=== PATIENT | female | born 1970 | race Two or more races ===

== ENCOUNTER 2025-02-12 15:30 | Inpatient (IN) | payer OTHER ==
[~2025-02-12] VITALS: Ht 160 cm; Wt 97.8 kg
[2025-02-12] MEDS: LABETALOL HCL 20 MG/4 ML VL IV ONE (15:45)
--- NOTE | 2025-02-12 16:03 | ED.PDOC ---
HPI Comments HPI: 54-year-old female presents to the emergency department with a chief complaint of hypertension onset today (02/12/25). Patient initially went to urgent care for RT-sided back pain, after vitals were taken she was told her BP was elevated, recommended to come to ED. During triage patient's BP was 237/116, patient states she has no symptoms her only complaint of RT side back pain. She has been experiencing back pain for the past week. Denies any fall, injury, trauma, chest pain, shortness of breath, dizziness, blurred vision, numbness/tingling, weakness. No other symptoms or modifying factors present at this time. Initial Vitals BP: 237/116 HR: 92 RR: 16 O2: 100% Temp: 98.5 F Past Medical History: Denies Past Surgical History:Denies Social History: Denies ETOH, smoking, and drug use. Medications: Denies Allergies: Denies HPI: Poor Historian. REVIEW OF SYSTEMS: CONSTITUTIONAL: Denies acute: fever, diaphoresis, chills, generalized weakness. HEAD: Denies acute: headache, photophobia Eyes: Denies acute: Double vision, vision loss, eye pain, eye discharge. EARS: Denies acute: tinnitus, hearing loss, ear discharge, ear pain, THROAT: Denies acute: sore throat, swelling, difficulty swallowing , pain with swallowing, change in voice. NECK: Denies acute: neck pain, neck swelling, stiff neck. HEART: Denies acute : chest pain, palpitations, LUNGS: Denies acute: SOB, wheezing, cough, hemoptysis ABDOMEN: Denies acute: abdominal pain, Nausea, Vomiting, diarrhea, melena , hematemesis, hematochezia SKIN: Denies acute: rash, redness, lesions, itchiness. EXTREMITIES: Denies acute: calf pain, numbness, tingling, weakness, denies pain in extremity. Denies acute: Low back pain. Neuro: Denies acute: focal neurological deficit, motor or sensory focal neurological deficit, tremors, seizure like activity, confusion, dizziness, change in mental status, loss of bowel or bladder function, cauda equina like symptoms. : Denies acute: dysuria, hematuria, flank pain, increase in urinary frequency. PSYCH: Denies acute: hallucination, suicidal ideation, homicidal ideation. FEMALE: Denies acute: abnormal vaginal bleeding, foul odor, unusual discharge. PHYSICAL EXAM: General: --no------acute distress, awake and alert. Head: normocephalic, atraumatic. Neck: supple, trachea is midline, no swelling. Throat: Normal phonation. Eyes:, no erythema, no purulent discharge, no proptosis, no icterus. Heart: regular rate, regular rhythm, no significant murmur appreciated. Lungs: no apparent respiratory distress, Able to speak in full sentences. No wheezing, no rhonchi, no crackles. No stridors Clear to auscultation bilaterally. Abdomen: non tender to palpation, non distended, soft, no guarding, no rebound, + bowel sounds. Neuro: Awake, Alert, oriented to name, self, situation, follows commands GCS=15. Speech is normal. Skin: no petechia, no purpura, no cyanosis, non-pale, not jaundice. Lower extremities: --no - Pitting edema no deformity, no focal swelling, no calf TTP. Makes eye contact. moves all four extremities. Face: no apparent facial droop. Patient area of back soreness is right immediately below the scapula. The pain is positional. Worse with certain movement and certain rotation. No swelling noted. No CVA tenderness to percussion bilaterally. Ambulating in the ED independently. ED COURSE: DISCLAIMER: This medical document was created using an electronic medical record system with voice recognition software and computerized dictation system. Although this document has been carefully reviewed, there might still be some phonetic and typographical errors. Occasional wrong-word or "sound-alike" substitutions may have occurred due to the inherent limitations of voice recognition software. These areas are purely typographical due to imperfections of the software programs and do not reflect any compromise in the patient's medical care. Please read the chart carefully and recognize, using context, where these substitutions have occurred. Chief Complaint: High Blood Pressure Time Seen by MD: 15:50 Reviewed Notes: Medications, Allergies Allergies: Coded Allergies: Hydralazine (Verified Allergy, Mild, 02/13/25) Home Meds Active Scripts Lisinopril (Lisinopril) 20 Mg Tab, 1 TAB PO DAILY, #90 TAB 1 Refill Prov:COCO MUNGUIA MD 02/17/25 Lisinopril (Lisinopril) 20 Mg Tab, 1 TAB PO DAILY PRN, #30 TAB 5 Refills Prov:COCO MUNGUIA MD 02/17/25 Amlodipine Besylate (Amlodipine Besylate) 10 Mg Tab, 1 TAB PO DAILY, #90 TAB 1 Refill Prov:KETTY FLORES MD 02/15/25 Information Source: Patient Mode of Arrival: Ambulatory Severity: Moderate Timing: Hours Duration: Since onset Prehospital treatment: None Onset: At Rest Cardiac Risk Factors: None PE Risk Factors: None History of: None Modifying Factors: Nothing Associated Signs and Symptoms: Back Pain Past Medical History PAST MEDICAL HISTORY: Denies Surgical History: Denies all surgeries WIRELINE FIELD OPERATOR History: No Pertinent WIRELINE FIELD OPERATOR History Family History Family History: Reviewed,noncontributory to illness, No family hx of Cancer, No family hx of DM, No family hx of Heart tyrone, No family hx of HTN, No family hx ofKidney tyrone, No family hx of Liver tyrone, No family hx of Lung tyrone, No family hx of Stroke Social History Smoker: Non-Smoker Alcohol: Denies ETOH Use Drugs: Denies Drug Use Lives In: Home Was a procedure done? Was a procedure done?: No CP Differential Dx Differential Diagnosis: N/A Differential Diagnosis: Other (DDX include renal disease, thyroid disease, electrolyte abnormality, increased salt intake, medications non-compliance, undiagnosed HTN, Hypertensive crisis, hypertensive urgency., drug toxicity.) X-Ray, Labs, Meds, VS Vital Signs Date Time Temp Pulse Resp B/P (MAP) Pulse Ox O2 Delivery O2 Flow Rate FiO2 02/13/25 02:00 84 21 174/96 (122) 92 02/13/25 01:00 85 21 175/97 (123) 90 02/13/25 00:50 88 12 154/137 (143) 97 02/12/25 23:30 98.6 91 15 175/92 (119) 98 98.6 02/12/25 23:30 91 15 98 Room Air* 0 21 02/12/25 20:42 102 18 169/79 (109) 99 02/12/25 19:50 102 18 187/110 (135) 99 02/12/25 19:37 188/163 02/12/25 18:30 215/107 02/12/25 18:22 81 18 215/107 (143) 98 02/12/25 17:50 218/115 02/12/25 17:34 258/123 02/12/25 16:57 94 18 258/125 (169) 96 02/12/25 16:57 98 18 02/12/25 15:45 100 215/118 02/12/25 15:31 98.5 92 16 237/116 100 98.5 Lab Test 02/12/25 19:08 02/12/25 17:37 02/12/25 15:59 Range/Units Troponin I High Sensitivity 7 7 10 </=34 ng/L White Blood Count 10.9 H 4.4-10.8 10^3/uL Red Blood Count 4.10 4.0-5.20 10^6/uL Hemoglobin 9.9 L 12.2-16.2 g/dL Hematocrit 30.1 L 36.0-46.0 % Mean Corpuscular Volume 73.5 L 80.0-100.0 fL Mean Corpuscular Hemoglobin 24.2 L 28.0-32.0 pg Mean Corpuscular Hemoglobin Concent 32.9 32.0-36.0 g/dL Red Cell Distribution Width 18.9 H 11.8-14.3 % Platelet Count 380 140-450 10^3/uL Mean Platelet Volume 7.6 6.9-10.8 fL Neutrophils (%) (Auto) 68.3 37.0-80.0 % Lymphocytes (%) (Auto) 22.5 10.0-50.0 % Monocytes (%) (Auto) 6.6 0.0-12.0 % Eosinophils (%) (Auto) 1.4 0.0-7.0 % Basophils (%) (Auto) 1.2 0.0-2.0 % Neutrophils # (Auto) 7.4 1.6-8.6 10 ^3/uL Lymphocytes # (Auto) 2.5 0.4-5.4 10 ^3/uL Monocytes # (Auto) 0.7 0-1.3 10 ^3/uL Eosinophils # (Auto) 0.2 0-0.8 10 ^3/uL Basophils # (Auto) 0.1 0-0.2 10 ^3/uL Nucleated Red Blood Cells 0.0 % Sodium Level 139 136-145 mmol/L Potassium Level 3.4 L 3.5-5.1 mmol/L Chloride Level 101 98-107 mmol/L Carbon Dioxide Level 28 20-31 mmol/L Anion Gap 10 5-15 Blood Urea Nitrogen 16 9-23 mg/dL Creatinine 0.79 0.550-1.02 mg/dL Glomerular Filtration Rate Calc 89 >90 mL/min BUN/Creatinine Ratio 20.3 H 10.0-20.0 Serum Glucose 90 74-106 mg/dL Calcium Level 9.6 8.7-10.4 mg/dL [place] [address] Ph: [phone] DIAGNOSTIC IMAGING Diagnostic Imaging Report : [id number] Signed PATIENT: DEQUAN ABDALLA ACCT: [id number] UNIT: [id number] : 1970 LOC: ER ROOM / BED: / AGE / SEX: 54 / F ADM STATUS: REG ER SERVICE 1544 ORDERING PHYSICIAN: OSMAR BAUGH DO PROCEDURE(s): HWOCT - HEAD WITHOUT CONTRAST REASON: HTN ORDER NUMBER(s): [id number], ACCESSION NUMBER(s): [id number] CLINICAL HISTORY: HTN TECHNIQUE: Helical scanning was performed of the head from the skull base to the vertex. Multiplanar reconstructions were performed. This exam was performed according to our departmental dose optimization program. Up-to-date CT equipment and radiation dose reduction techniques are utilized as appropriate. CTDI 58.9 DLP 1042 COMPARISON: None FINDINGS: There is no evidence for acute intracranial hemorrhage, acute ischemic changes, mass, mass effect, or extra-axial fluid collection. There is no hydrocephalus or midline shift. There is no effacement of the cerebral sulci and basal subarachnoid cisterns. The sheldon-white matter differentiation is well maintained. Scattered white matter hypoattenuation is most compatible with a moderate burden of nonspecific chronic small vessel schema change. There is a nonspecific coarse calcification at the left inferior govind. IMPRESSION: NO ACUTE INTRACRANIAL ABNORMALITY SEEN. SCATTERED WHITE MATTER HYPOATTENUATION IS MOST COMPATIBLE WITH a MODERATE BURDEN OF NONSPECIFIC CHRONIC SMALL VESSEL ISCHEMIC CHANGE. ATED BY: IRMA COLLINS MD DICTATED DATE/TIME: 02/12/257 SIGNED BY: IRMA COLLINS MD SIGNED DATE/TIME: 02/12/257 CC: [address] [address] Ph: [phone] DIAGNOSTIC IMAGING Diagnostic Imaging Report : [id number] Signed PATIENT: DEQUAN ABDALLA ACCT: [id number] UNIT: [id number] : 1970 LOC: ER ROOM / BED: / AGE / SEX: 54 / F ADM STATUS: REG ER SERVICE 1544 ORDERING PHYSICIAN: OSMAR BAUGH DO PROCEDURE(s): CXRP - CHEST PORTABLE REASON: HTN ORDER NUMBER(s): [id number], ACCESSION NUMBER(s): [id number] CLINICAL HISTORY: HTN TECHNIQUE: Single view of the chest was obtained. COMPARISON: None FINDINGS: The heart size and pulmonary vasculature are normal. The lungs are clear. IMPRESSION: NO ACUTE CARDIOPULMONARY PROCESS. ATED BY: IRMA COLLINS MD DICTATED DATE/TIME: 02/12/258 SIGNED BY: IRMA COLLINS MD SIGNED DATE/TIME: 02/12/251657 CC: Time of 1ST Reevaluation: 16:20 Reevaluation 1ST: Unchanged Patient Education/Counseling: Diagnosis, Treatment Family Education/Counseling: No Family Present Comments MDM: patient presented with the above HPI.--hypertensive crisis----workup was initiated. patient was found with the above mentioned diagnosis. the following medications were ordered: please refer to order lists of meds and tests obtained by myself Dr. Baugh. Patient ED course and VS have been stabilized. Patient has been reassessed in the ED and remained in a stable condition. Pertinent incidental findings were discussed with the patient and/or family. Patient/family voices understanding and is agreeable with plan. Patient has been observed in the ED adequate length of time to insure improvement/stability. Escalation of care considered: Consideration of escalation to observation or admission Patient was given multiple IV medications for blood pressure control. Patient was ADMITTED to the medicine team for further evaluation and treatment of their presentation. All the reports of any imaging studies that were ordered by myself were reviewed by myself. Departure 1 Departure Time of Disposition: 17:38 Impression: Primary Impression: Hypertensive crisis Additional Impression: Anemia Disposition: ADMITTED INPATIENT Admit to: Tele Condition: Guarded e-Prescriptions Lisinopril (Lisinopril) 20 Mg Tab 1 TAB PO DAILY, #90 TAB 1 Refill Prov: COCO MUNGUIA MD 02/17/25 Lisinopril (Lisinopril) 20 Mg Tab 1 TAB PO DAILY PRN, #30 TAB 5 Refills Prov: COCO MUNGUIA MD 02/17/25 Amlodipine Besylate (Amlodipine Besylate) 10 Mg Tab 1 TAB PO DAILY, #90 TAB 1 Refill Prov: KETTY FLORES MD 02/15/25 Discharged With: Self Critical Care Note Critical Care Time?: Yes (45 min-critical care time only) Heart Score Heart Score: Heart Score Response (Comments) Value History N/A 0 EKG N/A 0 Age N/A 0 Risk Factors N/A 0 Troponin N/A 0 Total 0 I personally scribed for OSMAR BAUGH DO ([email or web address]) on 02/12/25 at 16:03. Electronically submitted by Addie Colin ([email or web address]). I personally scribed for OSMAR BAUGH DO ([email or web address]) on 02/12/25 at 17:53. Electronically submitted by Addie Colin ([email or web address]). OSMAR BAUGH DO Feb 12, 2025 16:03
[2025-02-12 16:20] LABS: Mean Corpuscular Volume 73.5 fL (80.0-100.0); Nucleated Red Blood Cells % 0.0 %
[2025-02-12 16:22] LABS: Hematocrit 30.1 % (36.0-46.0); Hemoglobin 9.9 g/dL (12.2-16.2); Mean Corpuscular Hemoglobin 24.2 pg (28.0-32.0)
--- NOTE | 2025-02-12 16:40 | DVH ---
CLINICAL HISTORY: HTN TECHNIQUE: Helical scanning was performed of the head from the skull base to the vertex. Multiplanar reconstructions were performed. This exam was performed according to our departmental dose optimizat ion program. Up-to-date CT equipment and radiation dose reduction techniques are utilized as appropri ate. CTDI 58.9 DLP 1042 COMPARISON: None FINDINGS: There is no evidence for acute intracranial hemorrhage, acute ischemic changes, mass, mass effect, or extra-axial fluid collection. There is no hydrocephalus or midline shift. There is no effacement of the cerebral sulci and basal subarachnoid cisterns. The sheldon-white matter differentiation is well chiquis ntained. Scattered white matter hypoattenuation is most compatible with a moderate burden of nonspecific chron ic small vessel schema change. There is a nonspecific coarse calcification at the left inferior govind . IMPRESSION: NO ACUTE INTRACRANIAL ABNORMALITY SEEN. SCATTERED WHITE MATTER HYPOATTENUATION IS MOST COMPATIBLE WITH a MODERATE BURDEN OF NONSPECIFIC CHRON IC SMALL VESSEL ISCHEMIC CHANGE.
[2025-02-12 16:42] LABS: Chloride 101 mmol/L (98-107); Sodium 139 mmol/L (136-145)
[2025-02-12 16:43] LABS: Anion Gap 10 (5-15); Calcium 9.6 mg/dL (8.7-10.4); Carbon Dioxide 28 mmol/L (20-31)
[2025-02-12 16:48] LABS: BUN/Creatinine Ratio 20.3 (10.0-20.0); Blood Urea Nitrogen 16 mg/dL (9-23); Glucose 90 mg/dL (74-106)
--- NOTE | 2025-02-12 17:00 | DVH ---
CLINICAL HISTORY: HTN TECHNIQUE: Single view of the chest was obtained. COMPARISON: None FINDINGS: The heart size and pulmonary vasculature are normal. The lungs are clear. IMPRESSION: NO ACUTE CARDIOPULMONARY PROCESS.
[2025-02-12 17:15] LABS: Potassium 3.4 mmol/L (3.5-5.1)
[2025-02-12] MEDS: NITROGLYCERIN 0.4 MG SL TAB SL ONE (17:34)
[2025-02-12] MEDS: hydrALAZINE HCL 20 MG/ML VL IV ONE ×3 (17:50→19:37)
[2025-02-12] MEDS: ONDANSETRON HCL 4 MG/2 ML VIAL IV ONE (20:56)
[2025-02-12 23:30] VITALS: PULSE 91; RESP 15; O2SAT 98
[2025-02-13] MEDS: ONDANSETRON HCL 4 MG/2 ML VIAL IV ONE (00:58)
[2025-02-13] MEDS: ONDANSETRON HCL 4 MG/2 ML VIAL ONE (00:58)
[2025-02-13] MEDS ORDERED: MORPHINE SULFATE INJ 2 MG/ml SYRG IV PRN (02:30)
[2025-02-13] MEDS ORDERED: NITROGLYCERIN 0.4 MG SL TAB SL PRN (02:30)
[2025-02-13] MEDS: POTASSIUM CHL 20 Meq TABLET PO ONE (02:48)
[2025-02-13] MEDS: HYDROcodone-ACET 5/325MG TAB PO PRN (03:55)
[2025-02-13] MEDS: hydrALAZINE HCL 20 MG/ML VL IV PRN (04:45)
--- NOTE | 2025-02-13 04:46 | DVHHP2 ---
History of Present Illness Reason for Visit: Back pain History of Present Illness 64-year-old female initially presented for evaluation of back pain. Patient presented for evaluation of right-sided back pain during her vital sign evaluation she was noted to have a blood pressure of 237/116. Patient is currently reporting a frontal headache. No nausea or vomiting. She reports not being on any medications currently. And does not have a primary care provider. Denies chest pain or shortness for breath. Past Medical History Denies Past Surgical History Denies Family History Noncontributory Smoke: No ALCOHOL: none Drugs: None Lives: with Family Review of Systems Review of Systems Review of systems are currently negative otherwise addressed in HPI. Allergies: Coded Allergies: NO KNOWN ALLERGIES (Unverified , 02/12/25) Medications Current Medications Medications Dose Ordered Sig/Cheryle Route Start Time Stop Time Status Last Admin Dose Admin Hydralazine HCl 10 mg Q6HP PRN IV 02/13/25 02:30 Lisinopril 10 mg DAILY PO 02/13/25 10:00 Acetaminophen/ Hydrocodone Bitart 1 tab Q4HP PRN PO 02/13/25 02:30 02/13/25 03:55 1 TAB Ondansetron HCl 4 mg Q4HP PRN IV 02/13/25 02:30 Acetaminophen 650 mg Q6HP PRN PO 02/13/25 02:30 Nitroglycerin 0.4 mg Q5MINP PRN SL 02/13/25 02:30 Morphine Sulfate 2 mg Q30M PRN IV 02/13/25 02:30 Exam Vital Signs Vital Signs Date Time Temp Pulse Resp B/P (MAP) Pulse Ox O2 Delivery O2 Flow Rate FiO2 02/13/25 02:00 84 21 174/96 (122) 92 02/12/25 23:30 98.6 98.6 02/12/25 23:30 Room Air* 0 21 Exam Gen: 54-year-old female in mild distress, obese Skin: Warm, dry, normal color and texture, no rash. HEENT: Normocephalic atraumatic, mucous membranes moist and pink. Neck: Cervical and supraclavicular nodes normal without enlargement, trachea is midline, thyroid gland is normal without masses. Pulmonary: Clear to auscultation and percussion bilaterally. Cardiac: Regular rate and rhythm. No murmur Abdomen: Soft, nontender, nondistended, bowel sounds present all 4 quadrants, no guarding, no rigidity, no organomegaly. Extremities: No cyanosis, clubbing, no edema Neuro: Cranial nerves II through XII grossly intact, normal affect and speech, no focal motor deficits. Labs/Xrays ORDERING PHYSICIAN: OSMAR BAUGH DO PROCEDURE(s): CXRP - CHEST PORTABLE REASON: HTN ORDER NUMBER(s): [id number], ACCESSION NUMBER(s): [id number] CLINICAL HISTORY: HTN TECHNIQUE: Single view of the chest was obtained. COMPARISON: None FINDINGS: The heart size and pulmonary vasculature are normal. The lungs are clear. IMPRESSION: NO ACUTE CARDIOPULMONARY PROCESS. ATED BY: IRMA COLLINS MD ORDERING PHYSICIAN: OSMAR BAUGH DO PROCEDURE(s): HWOCT - HEAD WITHOUT CONTRAST REASON: HTN ORDER NUMBER(s): [id number], ACCESSION NUMBER(s): [id number] CLINICAL HISTORY: HTN TECHNIQUE: Helical scanning was performed of the head from the skull base to the vertex. Multiplanar reconstructions were performed. This exam was performed according to our departmental dose optimization program. Up-to-date CT equipment and radiation dose reduction techniques are utilized as appropriate. CTDI 58.9 DLP 1042 COMPARISON: None FINDINGS: There is no evidence for acute intracranial hemorrhage, acute ischemic changes, mass, mass effect, or extra-axial fluid collection. There is no hydrocephalus or midline shift. There is no effacement of the cerebral sulci and basal subarachnoid cisterns. The sheldon-white matter differentiation is well maintained. Scattered white matter hypoattenuation is most compatible with a moderate burden of nonspecific chronic small vessel schema change. There is a nonspecific coarse calcification at the left inferior govind. IMPRESSION: NO ACUTE INTRACRANIAL ABNORMALITY SEEN. SCATTERED WHITE MATTER HYPOATTENUATION IS MOST COMPATIBLE WITH a MODERATE BURDEN OF NONSPECIFIC CHRONIC SMALL VESSEL ISCHEMIC CHANGE. Labs Test 02/12/25 19:08 02/12/25 15:59 Range/Units Troponin I High Sensitivity 7 </=34 ng/L White Blood Count 10.9 H 4.4-10.8 10^3/uL Red Blood Count 4.10 4.0-5.20 10^6/uL Hemoglobin 9.9 L 12.2-16.2 g/dL Hematocrit 30.1 L 36.0-46.0 % Mean Corpuscular Volume 73.5 L 80.0-100.0 fL Mean Corpuscular Hemoglobin 24.2 L 28.0-32.0 pg Mean Corpuscular Hemoglobin Concent 32.9 32.0-36.0 g/dL Red Cell Distribution Width 18.9 H 11.8-14.3 % Platelet Count 380 140-450 10^3/uL Mean Platelet Volume 7.6 6.9-10.8 fL Neutrophils (%) (Auto) 68.3 37.0-80.0 % Lymphocytes (%) (Auto) 22.5 10.0-50.0 % Monocytes (%) (Auto) 6.6 0.0-12.0 % Eosinophils (%) (Auto) 1.4 0.0-7.0 % Basophils (%) (Auto) 1.2 0.0-2.0 % Neutrophils # (Auto) 7.4 1.6-8.6 10 ^3/uL Lymphocytes # (Auto) 2.5 0.4-5.4 10 ^3/uL Monocytes # (Auto) 0.7 0-1.3 10 ^3/uL Eosinophils # (Auto) 0.2 0-0.8 10 ^3/uL Basophils # (Auto) 0.1 0-0.2 10 ^3/uL Nucleated Red Blood Cells 0.0 % Sodium Level 139 136-145 mmol/L Potassium Level 3.4 L 3.5-5.1 mmol/L Chloride Level 101 98-107 mmol/L Carbon Dioxide Level 28 20-31 mmol/L Anion Gap 10 5-15 Blood Urea Nitrogen 16 9-23 mg/dL Creatinine 0.79 0.550-1.02 mg/dL Glomerular Filtration Rate Calc 89 >90 mL/min BUN/Creatinine Ratio 20.3 H 10.0-20.0 Serum Glucose 90 74-106 mg/dL Calcium Level 9.6 8.7-10.4 mg/dL SEPSIS Sepsis Screen Date sepsis recognized/suspect: Feb 13, 2025 Time Sepsis recognized/suspect: 020 Recent Procedure: No On Antibiotic Therapy: No Respiratory Rate >20: No Heart Rate >90: Yes Temp<36 C (96.8 F) or >38.3 C: No SBP <90 or MAP <65 mmHG: No New Acute Mental Status Change: No Is the patient on CPAP, BIPAP,: No Physician Orders Hydralazine Injection (Apresoline Inject (02/13/25 02:30) Lisinopril Tablet (Zestril Tablet) (02/13/25 10:00) Thyroid Stimulating Hormone (02/13/25 02:24) Lipid Panel (02/13/25 02:24) Complete Blood Count (02/13/25 04:00) Iron Panel (02/13/25 02:24) Admit (02/13/25 02:24) Hydrocodone-Acet 5/325mg Tab (Ozan 532 (02/13/25 02:30) Ondansetron Hcl (Zofran) (02/13/25 02:30) Cardiac Diet-2gna,Lofat,Lochol (02/13/25 Breakfast) Echo 2d Mode Cardiac Dop (02/13/25 02:24) Condition: Fair (02/13/25 02:24) Acetaminophen Tablet (Tylenol Tablet) (02/13/25 02:30) Bedrest With Bathroom Privileg (02/13/25 02:24) Nitroglycerin Sublingual (Ntrostat Subli (02/13/25 02:30) Morphine Sulfate Injection (02/13/25 02:30) Stat Ekg For Chest Pain (02/13/25 02:24) Notify Md Of Changes From Base (02/13/25 02:24) Sewing Department Supervisor For 24 Hours (02/13/25 02:24) Emergency Dysrhythmia Protocol (02/13/25 02:24) Rhythm Strips Once Every Shift (02/13/25 02:24) Oxygen By Nasal Cannula (02/13/25 02:24) Basic Metabolic Panel (02/13/25 02:24) Vital Signs Date Time Temp Pulse Resp B/P (MAP) Pulse Ox O2 Delivery O2 Flow Rate FiO2 02/13/25 02:00 84 21 174/96 (122) 92 02/13/25 01:00 85 21 175/97 (123) 90 02/13/25 00:50 88 12 154/137 (143) 97 02/12/25 23:30 98.6 91 15 175/92 (119) 98 98.6 02/12/25 23:30 91 15 98 Room Air* 0 21 02/12/25 20:42 102 18 169/79 (109) 99 Medications Medications Dose Ordered Sig/Cheryle Route Start Time Stop Time Status Last Admin Dose Admin Acetaminophen/ Hydrocodone Bitart 1 tab Q4HP PRN PO 02/13/25 02:30 02/13/25 03:55 1 TAB Hydralazine HCl 5 mg ONCE ONCE IV 02/12/25 17:45 02/12/25 17:46 DC 02/12/25 17:50 5 MG Hydralazine HCl 5 mg ONCE ONCE IV 02/12/25 18:30 02/12/25 19:00 DC 02/12/25 18:30 5 MG Hydralazine HCl 10 mg ONCE ONCE IV 02/12/25 19:15 02/12/25 19:17 DC 02/12/25 19:37 10 MG Nitroglycerin 0.4 mg STK-MED ONCE SL 02/12/25 17:10 02/12/25 17:06 DC 02/12/25 17:34 0.4 MG Ondansetron HCl 4 mg ONCE ONCE IV 02/12/25 20:45 02/12/25 20:46 DC 02/12/25 20:56 4 MG Ondansetron HCl 4 mg ONCE ONCE IV 02/13/25 01:45 02/13/25 01:46 DC 02/13/25 00:58 4 MG Potassium Chloride 20 meq ONCE ONCE PO 02/13/25 02:30 02/13/25 02:40 DC 02/13/25 02:48 20 MEQ Assessment/Plan Assessment/Plan Assessment Hypertensive urgency Hypokalemia Anemia Plan Admit the patient to telemetry to the hospitalist Start lisinopril As needed antihypertensives Echocardiogram pending Continue treatment per orders. Plan discussed with: Patient My Orders Orders - ALONSO ROSARIO Procedure Category Date Status Time Hydralazine Injection PHA 02/13/25 In Process (Apresoline Inject 02:30 Lisinopril Tablet PHA 02/13/25 In Process (Zestril Tablet) 10:00 Thyroid Stimulating LAB 02/13/25 Logged Hormone 02:24 Lipid Panel LAB 02/13/25 Logged 02:24 Complete Blood Count LAB 02/13/25 Logged 04:00 Iron Panel LAB 02/13/25 Logged 02:24 Admit ADMIT 02/13/25 Transmitted 02:24 Hydrocodone-Acet PHA 02/13/25 In Process 5/325mg Tab (Ozan 02:30 Ondansetron Hcl PHA 02/13/25 In Process (Zofran) 02:30 Cardiac DIET 02/13/25 Transmitted Diet-2gna,Lofat,Lochol Breakfast Echo 2d Mode Cardiac US 02/13/25 Logged DOP 02:24 Condition: Fair [facility] 02/13/25 In Process 02:[address] [facility] 02/13/25 In Process (Tylenol Tablet) 02:30 Bedrest With Bathroom [facility] 02/13/25 In Process Privileg 02:[address] [facility] 02/13/25 In Process Sublingual (Ntrostat 02:[address] [facility] 02/13/25 In Process Injection 02:30 Stat Ekg For Chest [facility] 02/13/25 In Process Pain 02:24 Notify Md Of Changes [facility] 02/13/25 In Process From Base 02:24 Sewing Department Supervisor For [facility] 02/13/25 In Process 24 Hours 02:24 Emergency Dysrhythmia [facility] 02/13/25 In Process Protocol 02:24 Rhythm Strips Once [facility] 02/13/25 In Process Every Shift 02:24 Oxygen By Nasal RT 02/13/25 Transmitted Cannula 02:24 Basic Metabolic Panel LAB 02/13/25 Logged 02:24 Date of Service: Feb 13, 2025 Billing Provider: ALONSO ROSARIO Common Visit Codes: [id number] INP/OBS CARE (HIGH) ALONSO ROSARIO Feb 13, 2025 04:46
[2025-02-13 06:38] LABS: Hemoglobin 10.5 g/dL (12.2-16.2); Nucleated Red Blood Cells % 0.0 %
[2025-02-13 06:41] LABS: Hematocrit 32.8 % (36.0-46.0); Mean Corpuscular Hemoglobin 23.7 pg (28.0-32.0); Mean Corpuscular Volume 73.9 fL (80.0-100.0)
[2025-02-13 06:45] LABS: Chloride 98 mmol/L (98-107)
[2025-02-13 06:46] LABS: Anion Gap 14 (5-15); Calcium 9.2 mg/dL (8.7-10.4); Carbon Dioxide 23 mmol/L (20-31)
[2025-02-13 06:51] LABS: BUN/Creatinine Ratio 12.3 (10.0-20.0); Blood Urea Nitrogen 10 mg/dL (9-23); Iron 54.0 ug/dL (50-170); Triglycerides 69 mg/dL (< 150)
[2025-02-13 06:52] LABS: Glucose 155 mg/dL (74-106); Potassium 3.3 mmol/L (3.5-5.1); Sodium 135 mmol/L (136-145)
[2025-02-13 06:53] LABS: Cholesterol 191 mg/dL (< 200)
[2025-02-13 06:54] LABS: Total Iron Binding Capacity 384.0 ug/dL (250-425)
[2025-02-13 06:58] LABS: HDL Cholesterol 68 mg/dL (40-59)
[2025-02-13 09:00] VITALS: PULSE 96; RESP 18; O2SAT 96
[2025-02-13] MEDS: LISINOPRIL 5 MG TAB PO SCH (09:44)
[2025-02-13] MEDS: ONDANSETRON HCL 4 MG/2 ML VIAL IV PRN (09:45)
--- NOTE | 2025-02-13 12:47 | ECG ---
[facility] Test Date: 2025-02-13 Test Time: 06:10:20 Pat Name: DEQUAN ABDALLA Department: Room: [address] [place] [address] Gender: F Billet Heater: SONIDO : 1970 Requested By: OSMAR ABUGH Order Number: [id number] Reading MD: Nicholas Leon Measurements Intervals [place] Rate: 93 P: 60 [place]: 181 QRS: 8 QRSD: 98 T: 4 QT: 388 QTc: 483 Interpretive Statements Sinus rhythm Probable left atrial enlargement Borderline T wave abnormalities Electronically Signed On 02-13-2025 17:01:22 PDT by Nicholas Leon Please click the below link to view image of tracing.
[2025-02-13 13:18] LABS: Urine Budding Yeast OCCASIONAL /hpf (None Seen); Urine Protein, UAD 1+ (Negative)
[2025-02-13] MEDS: KETOROLAC TROMETH 30 MG/ML 1ML VIAL IV ONE (13:43)
--- NOTE | 2025-02-13 13:55 | DVHPN2 ---
Assessment/Plan Assessment/Plan progress note 54 F with no sig PMH admitted for hypertension and intractable back pain physical exam aox4 PERLLA CTAB s1 s2 rrr abdomen soft no paraspinal tenderness, point tenderness on R side back on a rib no cva tenderness no le edema ekg labs imaging reviewed assessment and plan interactible back pain no red flags hypertension intractible headache iv pain meds start oral anti HTN and pain management, no IV anti hypertensive pt had no prior age appropriate cancer screening baclofen diet reg dvt ppx ambulatory full code Plan discussed with: Patient My Orders Orders - KETTY FLORES MD Procedure Category Date Status Time Ketorolac Injection PHA 02/13/25 In Process (Toradol Injection) 13:00 Transfer Orders XFER 02/13/25 Transmitted 13:48 Communication Order ORDERS 02/13/25 Transmitted 13:48 Date of Service: Feb 13, 2025 Billing Provider: KETTY FLORES MD Common Visit Codes: [id number] INP/OBS CARE(HIGH) KETTY FLORES MD Feb 13, 2025 13:55
[2025-02-13] MEDS: BACLOFEN 10 MG TAB PO SCH (17:03)
[2025-02-13 21:00] VITALS: BP 162/88; PULSE 62; RESP 17; TEMP 98; O2SAT 93
[2025-02-13 21:04] VITALS: PULSE 73; RESP 16; O2SAT 95
[2025-02-14] VITALS (8 sets, daily range): BP systolic 155–176; BP diastolic 63–106; PULSE 57–85; RESP 17–19; TEMP 97–98.4; O2SAT 94–100
[2025-02-14] MEDS: KETOROLAC TROMETH 30 MG/ML 1ML VIAL IV PRN (05:38)
[2025-02-14 07:03] LABS: Chloride 100 mmol/L (98-107); Potassium 3.7 mmol/L (3.5-5.1); Sodium 138 mmol/L (136-145)
[2025-02-14 07:04] LABS: Anion Gap 10 (5-15); Calcium 9.0 mg/dL (8.7-10.4); Carbon Dioxide 28 mmol/L (20-31)
[2025-02-14 07:09] LABS: BUN/Creatinine Ratio 15.3 (10.0-20.0); Blood Urea Nitrogen 20 mg/dL (9-23)
[2025-02-14 07:10] LABS: Glucose 108 mg/dL (74-106)
[2025-02-14 07:19] LABS: Hematocrit 30.7 % (36.0-46.0); Hemoglobin 9.9 g/dL (12.2-16.2); Mean Corpuscular Hemoglobin 23.9 pg (28.0-32.0); Nucleated Red Blood Cells % 0.0 %
[2025-02-14 07:25] LABS: Mean Corpuscular Volume 74.0 fL (80.0-100.0)
[2025-02-14] MEDS: SODIUM CHLORIDE 0.9% 1,000 ML IV ONE (09:30)
--- NOTE | 2025-02-14 09:31 | DVHPN2 ---
Assessment/Plan Assessment/Plan progress note 54 F with no sig PMH admitted for hypertension and intractable back pain improved physical exam aox4 PERLLA CTAB s1 s2 rrr abdomen soft no paraspinal tenderness, point tenderness on R side back on a rib no cva tenderness no le edema ekg labs imaging reviewed assessment and plan interactible back pain no red flags hypertension intractible headache bubba after lisinopril initiation iv pain meds start oral anti HTN and pain management, no IV anti hypertensive pt had no prior age appropriate cancer screening baclofen hold hung, start amlodipine, trend bmp diet reg dvt ppx ambulatory full code Plan discussed with: Patient My Orders Orders - KETTY FLORES MD Procedure Category Date Status Time Ketorolac Injection PHA 02/13/25 In Process (Toradol Injection) 13:00 Transfer Orders XFER 02/13/25 Transmitted 13:48 Communication Order ORDERS 02/13/25 Transmitted 13:48 Baclofen Tablet PHA 02/13/25 In Process (Liorisal Tablet) 14:00 NS PHA 02/14/25 Verified 09:30 Basic Metabolic Panel LAB 02/14/25 Verified 12:00 Basic Metabolic Panel LAB 02/15/25 Verified 04:00 Amlodipine Tablet PHA 02/14/25 Verified (Norvasc Tablet) 09:30 Amlodipine Tablet PHA 02/14/25 Verified (Norvasc Tablet) 10:00 Date of Service: Feb 14, 2025 Billing Provider: KETTY FLORES MD Common Visit Codes: [id number] INP/OBS CARE(HIGH) KETTY FLORES MD Feb 14, 2025 09:31
[2025-02-14] MEDS: ACETAMINOPHEN 325 MG TAB PO PRN (10:56)
--- NOTE | 2025-02-14 12:03 | DVH ---
CT HEAD WITHOUT CONTRAST INDICATION: Reevaluate Ischemic Changes EXAM DATE: 02/14/2025 11:31 AM COMPARISON: CT HEAD WITHOUT CONTRAST on DOS: 02/12/25 RADIATION DOSE: CTDIvol: 59.5 mGy, DLP: 1053.46 mGy*cm PROCEDURE: CT scans of the head were obtained from the vertex to the skull base. Sagittal and coronal reconstructions were provided. All CT scans at this medical facility are performed using dose modulation techniques as appropriate t o a performed exam including the following: Automated exposure control was utilized; adjustment of th e MA and/or KV according to patient size; and use of iterative reconstruction technique. FINDINGS: There is sulcal and ventricular prominence. The brainshows normal morphology and sheldon-whi te matter differentiation, without intracranial hemorrhage, extra-axial fluid collection, mass effect or acute large vessel infarct. The ventricles are normal in size. The basal cisterns are patent. The skull and visible facial bones are intact. The paranasal sinuses, mastoid air cells and middle ear c avities are well-aerated. The soft tissues of the scalp are unremarkable. IMPRESSION: No significant interval change from prior. No acute intracranial abnormality.
[2025-02-14 12:27] LABS: Chloride 101 mmol/L (98-107); Potassium 3.5 mmol/L (3.5-5.1); Sodium 137 mmol/L (136-145)
[2025-02-14 12:28] LABS: Anion Gap 9 (5-15); Calcium 8.9 mg/dL (8.7-10.4); Carbon Dioxide 27 mmol/L (20-31)
[2025-02-14 12:33] LABS: BUN/Creatinine Ratio 17.2 (10.0-20.0); Blood Urea Nitrogen 21 mg/dL (9-23); Glucose 81 mg/dL (74-106)
[2025-02-14] MEDS: clonazePAM 0.5 MG TAB PO PRN (13:44)
[2025-02-15 01:00] VITALS: BP 162/86; PULSE 68; RESP 14; TEMP 98.5; O2SAT 98
[2025-02-15 04:59] VITALS: BP 156/88; PULSE 66; RESP 18; TEMP 97.5; O2SAT 99
[2025-02-15 07:17] LABS: Calcium 9.1 mg/dL (8.7-10.4); Chloride 102 mmol/L (98-107); Sodium 139 mmol/L (136-145)
[2025-02-15 07:18] LABS: Anion Gap 10 (5-15); Carbon Dioxide 27 mmol/L (20-31)
[2025-02-15 07:19] LABS: Potassium 3.5 mmol/L (3.5-5.1)
[2025-02-15 07:24] LABS: BUN/Creatinine Ratio 21.1 (10.0-20.0); Blood Urea Nitrogen 20 mg/dL (9-23); Glucose 105 mg/dL (74-106)
[2025-02-15] MEDS ORDERED: BACL5TAB2 PO (08:38)
[2025-02-15] MEDS ORDERED: AMLO1TAB23 PO (08:38)
[2025-02-15 09:00] VITALS: BP 166/83; PULSE 70; RESP 16; TEMP 98.1; O2SAT 97
[2025-02-15] MEDS ORDERED: KETOROLAC TROMETH 30 MG/ML 1ML VIAL IV ONE (09:15)
[2025-02-15 13:00] VITALS: BP 167/99; PULSE 81; RESP 17; TEMP 98.7; O2SAT 98
[2025-02-15] MEDS: MORPHINE SULFATE INJ 2 MG/ml SYRG IV ONE (13:43)
[2025-02-15 16:44] VITALS: BP 158/85; PULSE 73; RESP 16; TEMP 97.1; O2SAT 100
--- NOTE | 2025-02-15 20:53 | DVHPN2 ---
Assessment/Plan Assessment/Plan progress note 54 F with no sig PMH admitted for hypertension and intractable back pain improved, still have headache. bubba resolved. reintroducing lisinopril. sumatriptan for migraine physical exam aox4 PERLLA CTAB s1 s2 rrr abdomen soft no paraspinal tenderness, point tenderness on R side back on a rib no cva tenderness no le edema ekg labs imaging reviewed assessment and plan interactible back pain no red flags hypertension intractible headache bubba after lisinopril initiation iv pain meds start oral anti HTN and pain management, no IV anti hypertensive pt had no prior age appropriate cancer screening baclofen hold hung, start amlodipine, trend bmp start lisinopril sumatriptan for migraine diet reg dvt ppx ambulatory full code Plan discussed with: Patient My Orders Orders - KETTY FLORES MD Procedure Category Date Status Time Lisinopril Tablet PHA 02/16/25 Verified (Zestril Tablet) 10:00 Sumatriptan Inj PHA 02/15/25 Verified (Imitrex Inj) 21:00 Basic Metabolic Panel LAB 02/16/25 Verified 04:00 Date of Service: Feb 15, 2025 Billing Provider: KETTY FLORES MD Common Visit Codes: [id number] INP/OBS CARE(HIGH) KETTY FLORES MD Feb 15, 2025 20:53
[2025-02-15 21:00] VITALS: BP 146/86; PULSE 87; RESP 18; TEMP 97.9; O2SAT 95
[2025-02-15] MEDS: SUMAtriptan SUCCINATE 6 MG/0.5 ML VL SC ONE (22:10)
[2025-02-16 05:49] VITALS: BP 167/104; PULSE 68; RESP 18; TEMP 97.6; O2SAT 97
[2025-02-16 06:30] VITALS: BP 167/90; RESP 18; O2SAT 97
[2025-02-16 07:04] LABS: Chloride 102 mmol/L (98-107); Sodium 139 mmol/L (136-145)
[2025-02-16 07:05] LABS: Anion Gap 9 (5-15); Carbon Dioxide 28 mmol/L (20-31)
[2025-02-16 07:10] LABS: BUN/Creatinine Ratio 21.3 (10.0-20.0); Blood Urea Nitrogen 17 mg/dL (9-23); Glucose 101 mg/dL (74-106)
[2025-02-16 07:16] LABS: Calcium 8.6 mg/dL (8.7-10.4); Potassium 3.4 mmol/L (3.5-5.1)
[2025-02-16 09:00] VITALS: BP 167/82; PULSE 64; RESP 17; TEMP 97.9; O2SAT 96
[2025-02-16] MEDS: LISINOPRIL 5 MG TAB PO SCH (09:47)
[2025-02-16 13:00] VITALS: BP 166/100; PULSE 77; RESP 18; TEMP 98.4; O2SAT 98
[2025-02-16] MEDS: HYDROcodone-ACET 5/325MG TAB PO ONE (15:53)
--- NOTE | 2025-02-16 16:11 | DVHPN2 ---
Subjective c/o bi frontal headache after admission/no nausea or vomiting/no fever/neck pain/no visual symptoms Changes from previous H/P or p: No Changes Objective Vitals Vital Signs Date Time Temp Pulse Resp B/P (MAP) Pulse Ox O2 Delivery O2 Flow Rate FiO2 02/16/25 13:00 98.4 77 18 166/100 (122) 98 98.4 02/15/25 20:00 Room Air* 0 21 Intake/Output Intake and Output 02/16/25 07:00 Intake Total 2450 ml Balance 2450 ml Intake Oral 2450 ml # Voids 4 General Appearance: Alert, Oriented X3 HEENT: PERRLA Lungs: Clear to auscultation, Normal air movement Cardiovascular: Regular rate, Normal S1, Normal S2 Abdomen: Normal bowel sounds, Soft, No tenderness, No hepatospenomegaly Musculoskeletal: Normal sensory function, Normal motor function Neuro: Normal speech, Strength at 5/5 X4 ext, Normal tone, Sensation intact, C ranial nerves 3-12 NL Psych/Mental Status: Mental status NL Medications Current Medications Medications Dose Ordered Sig/Cheryle Route Start Time Stop Time Status Last Admin Dose Admin Acetaminophen 650 mg Q6HP PRN PO 02/13/25 02:30 02/14/25 17:46 650 MG Amlodipine Besylate 10 mg DAILY PO 02/15/25 10:00 02/16/25 09:47 10 MG Lisinopril 5 mg DAILY PO 02/16/25 10:00 02/16/25 09:47 5 MG Laboratory Results Laboratory Tests 02/14/25 06:32 02/16/25 06:10 Chemistry Test 02/16/25 06:10 Calcium Level 8.6 mg/dL (8.7-10.4) L Urinalysis Test 02/13/25 10:30 Urine Color Yellow (Yellow) Urine Clarity Clear (Clear) Urine pH 6.5 (5.0-9.0) Urine Specific [place] 1.021 (1.001-1.035) Urine Protein 1+ (Negative) H Urine Ketones Trace (Negative) Urine Blood Negative /uL (Negative) Urine Nitrite Negative (Negative) Urine Bilirubin Negative (Negative) Urine Urobilinogen Normal mg/dL (Negative) Urine Leukocyte Esterase Negative /uL (Negative) Urine RBC 15 /hpf (0 - 4) Urine Microscopic WBC < 1 /HPF (0-5) Urine Squamous Epithelial Cells Few /hpf (<5) Urine Bacteria Few /hpf (None Seen) H Urine Hyaline Casts Few /lpf (0 - 2) Urine Mucus Few (None Seen) Urine Yeast (Budding) Occasional /hpf (None Urine Glucose 2+ mg/dL (Normal) H Labs and/or images reviewed: Labs reviewed by me, Image(s) reviewed by me Assessment/Plan Assessment/Plan htn urgency on admission headache- evaluate/treat- pt insists from meds- dd tension headache/migraine less likely./ct head normal iron defeciency anemia- from [facility] as op for pap and us-never had one for 30 yrs/if [facility] work up negative have colonoscopy as op perimenopause Plan discussed with: Patient, Daughter, Other Date of Service: Feb 17, 2025 Billing Provider: COCO MUNGUIA MD Common Visit Codes: [id number] INP/OBS CARE (MOD) COCO MUNGUIA MD Feb 16, 2025 16:10
[2025-02-16 16:45] VITALS: BP 165/101; PULSE 82; RESP 17; TEMP 98; O2SAT 98
[2025-02-16 21:00] VITALS: BP 154/90; PULSE 71; RESP 18; TEMP 98.4; O2SAT 94
[2025-02-17] VITALS (7 sets, daily range): BP systolic 141–162; BP diastolic 80–98; PULSE 61–100; RESP 17–18; TEMP 36.7; O2SAT 95–99
[2025-02-17 07:16] LABS: COVID19 ANTIGEN SOFIA FIA NEGATIVE (NEGATIVE)
--- NOTE | 2025-02-17 12:14 | DVH ---
ULTRASOUND RENAL CLINICAL INDICATION: htn urgency TECHNIQUE: Real-time sonographic, duplex, and color Doppler images of the kidneys were obtained. FINDINGS: The right kidney measures 11.8 cm and is normal in size. The right renal echogenicity, cont our and cortical thickness are within normal limits. There is no hydronephrosis, large masses or glenroy nephric fluid is seen. The left kidney measures 10.3 cm and is normal in size. The left renal echogenicity, contour, and cor tical thickness are within normal limits. No evidence hydronephrosis, 3.6 cm left renal cyst noted.. Subsequent Doppler interrogation of the kidneys was performed. On the right, the internal renal az ry Doppler showed good upstroke during systole with a Resistive Index 0.65. End-diastolic volume is 1 9.4 cm/sec The velocity within the aorta measures 72 cm/sec m/sec. On the left internal renal artery Doppler showed good upstroke during systole with a Resistive Index 0.65. End-diastolic volume is 2 29.9 cm/sec IMPRESSION: 1. No evidence of renal artery stenosis. 2. Left renal cyst
[2025-02-17] MEDS: LISINOPRIL 5 MG TAB PO ONE (13:34)
[2025-02-17] MEDS ORDERED: LISI20TA56 PO (17:13)
== END 2025-02-17 18:24 | disposition home or self-care (01) | DRG 103 ==
LOC: ER 15:30 → OVERFLOW 02-13 02:24 → TELE-EAST 02-13 21:26 → EAST 02-16 02:14
PROVIDERS: ADMIT Student in an Organized Health Care Education/Training Program; ATTEND Student in an Organized Health Care Education/Training Program
DX: G44.209 Tension-type headache, unspecified, not intractable (principal); I16.0 Hypertensive urgency; G43.909 Migraine, unspecified, not intractable, without status migrainosus; E87.6 Hypokalemia; Z20.822 Contact with and (suspected) exposure to COVID-19; D64.9 Anemia, unspecified; D50.9 Iron deficiency anemia, unspecified; I10 Essential (primary) hypertension; M54.9 Dorsalgia, unspecified
CPT/HCPCS: 36415; 70450; 71045; 80048; 80061; 81001; 83540; 83550; 84443; 84484; 85025; 85379; 87426; 87804; 93005; 93976; 96374; 96375; 99291; G0378; J1885; J2405

== ENCOUNTER → 2025-03-01 | Outpatient (CLI) | payer OTHER ==
[~2025-03-01] MED LIST: AMLO1TAB23 PO; LISI20TA56 PO
[2025-03-01 11:01] LABS: Hematocrit 30.5 % (36.0-46.0); Hemoglobin 9.7 g/dL (12.2-16.2); Mean Corpuscular Hemoglobin 24.1 pg (28.0-32.0); Mean Corpuscular Volume 75.8 fL (80.0-100.0); Nucleated Red Blood Cells % 0.1 %
[2025-03-01 11:23] LABS: Chloride 103 mmol/L (98-107); Potassium 3.6 mmol/L (3.5-5.1); Sodium 140 mmol/L (136-145)
[2025-03-01 11:24] LABS: Anion Gap 11 (5-15); Calcium 9.1 mg/dL (8.7-10.4); Carbon Dioxide 26 mmol/L (20-31)
[2025-03-01 11:29] LABS: BUN/Creatinine Ratio 14.0 (10.0-20.0); Blood Urea Nitrogen 13 mg/dL (9-23); Glucose 104 mg/dL (74-106)
== END | disposition home or self-care (01) ==
LOC: LAB 10:23
PROVIDERS: ATTEND Student in an Organized Health Care Education/Training Program
DX: I10 Essential (primary) hypertension (principal)
CPT/HCPCS: 36415; 80048; 85025

== ENCOUNTER 2025-04-12 06:06 | Outpatient (CLI) | payer OTHER ==
[2025-04-12 07:33] LABS: Hematocrit 27.2 % (36.0-46.0); Hemoglobin 8.8 g/dL (12.2-16.2); Mean Corpuscular Hemoglobin 25.0 pg (28.0-32.0); Mean Corpuscular Volume 76.8 fL (80.0-100.0); Nucleated Red Blood Cells % 0.0 %
[2025-04-12 07:44] LABS: Urine Protein, UAD Negative (Negative)
[2025-04-12 08:17] LABS: Albumin 4.1 g/dL (3.2-4.8); Alkaline Phosphatase 92 U/L (46-116); Anion Gap 11 (5-15); BUN/Creatinine Ratio 18.1 (10.0-20.0); Blood Urea Nitrogen 13 mg/dL (9-23); Calcium 8.8 mg/dL (8.7-10.4); Carbon Dioxide 26 mmol/L (20-31); Chloride 105 mmol/L (98-107); Glucose 102 mg/dL (74-106); Sodium 142 mmol/L (136-145); Total Protein 7.7 g/dL (5.7-8.2); Triglycerides 67 mg/dL (< 150)
[2025-04-12 08:18] LABS: Alanine Aminotransferase < 9 U/L (7-40); Bilirubin, Total 0.3 mg/dL (0.2-1.0); Cholesterol 158 mg/dL (< 200); HDL Cholesterol 55 mg/dL (40-59); Potassium 3.3 mmol/L (3.5-5.1)
[2025-04-12 08:45] LABS: Total Iron Binding Capacity 350.0 ug/dL (250-425)
[2025-04-12 08:50] LABS: Iron 26.0 ug/dL (50-170)
== END 2025-04-15 17:00 | disposition home or self-care (01) ==
LOC: LAB 06:06
PROVIDERS: ATTEND Student in an Organized Health Care Education/Training Program
DX: I10 Essential (primary) hypertension (principal); E55.9 Vitamin D deficiency, unspecified; D50.9 Iron deficiency anemia, unspecified; R73.9 Hyperglycemia, unspecified
CPT/HCPCS: 36415; 80053; 80061; 81001; 82306; 82728; 83036; 83540; 83550; 84443; 85025